=== PATIENT | female | born 1995 | race Caucasian/White ===

== ENCOUNTER → 2023-09-14 | Outpatient (REF) | payer BC | LOC: LAB 15:00 | DX: N39.0 Urinary tract infection, site not specified (principal) ==

== ENCOUNTER → 2023-10-29 | Outpatient (REF) | payer BC | LOC: LAB 15:24 | DX: R50.9 Fever, unspecified (principal) ==

== ENCOUNTER → 2023-12-23 | Outpatient (CLI) | payer BC ==
[2023-12-23 09:00] LABS: CLUE CELLS NOT OBSERVED (Not Observd)
[2023-12-23 09:06] LABS: ALBUMIN 4.3 g/dL (3.5-5.0)
[2023-12-23 09:07] LABS: BASO # 0.05 K/mm3 (0.02-0.10); CALCIUM 9.6 mg/dL (8.3-10.5); EOS # 0.15 K/mm3 (0.04-0.40); EOS % 1.4 % (1.0-5.0); HEMATOCRIT 42.9 % (37.0-47.0); HEMOGLOBIN 14.2 g/dL (12.5-16.0); MEAN CELL VOLUME 91 fl (78-100); MEAN CORPUSCULAR HEMOGLOBIN 30 pg (27-31); MEAN CORPUSCULAR HGB CONC 33 g/dL (33-37); MEAN PLATELET VOLUME 11.3 fl (7.4-10.4); MONO # 0.66 K/mm3 (0.20-0.80); NEU # 7.95 K/mm3 (1.40-6.50); PLATELET COUNT 212 K/mm3 (130-400); RED BLOOD COUNT 4.71 M/mm3 (4.10-5.30); RED CELL DISTRIBUTION WIDTH 12.3 % (11.5-14.5); WHITE BLOOD COUNT 10.6 K/mm3 (4.8-10.8)
[2023-12-23 09:09] LABS: TOTAL PROTEIN 7.4 g/dL (6.4-8.3)
[2023-12-23 09:10] LABS: TOTAL BILIRUBIN 0.6 mg/dL (0.2-1.2)
== END ==
LOC: LAB 08:43
PROVIDERS: Nurse Practitioner Family
DX: R10.9 Unspecified abdominal pain (principal)
CPT/HCPCS: Q0111